=== PATIENT | female | born 1950 | race African-American/Black ===

== ENCOUNTER 2020-09-03 11:45 | Outpatient (CLI) | payer MEDICARE, SELFPAY ==
--- NOTE | ~2020-09-03 | XR_ITS ---
EXAMINATION: XR lumbar spine min 4V DATE: 09/03/2020 12:12 INDICATION: Low back pain TECHNIQUE: Anteroposterior, lateral, and bilateral oblique views of the lumbar spine, and cone-down l ateral view of the lumbosacral junction were obtained. COMPARISON: 05/03/2016 FINDINGS: There are 2 mm of chronic anterolisthesis of L3 on L4 and L4 on L5. The vertebral body heig hts are maintained. No fracture is identified. There is mild loss of intervertebral disc space height at L4-5 and L5-S1. Small degenerative osteophytes project from the anterior endplates of multiple ve rtebral bodies. Mild to moderate facet osteoarthritis is present in the lower lumbar spine. The bowel gas pattern is normal. IMPRESSION: 1. Mild lumbar spondylosis without acute findings or significant interval change. Reviewed, dictated and finalized at location A. IMPRESSION: 1. Mild lumbar spondylosis without acute findings or significant interval raffy petersen
== END 2020-09-03 11:46 | disposition home or self-care (01) ==
PROVIDERS: PCP Family Medicine; Visit Provider Family Medicine
DX: M54.5 Low back pain (principal); M47.816 Spondylosis without myelopathy or radiculopathy, lumbar region
CPT/HCPCS: 72110

== ENCOUNTER 2020-09-14 09:22 | Outpatient (CLI) | payer MEDICARE, SELFPAY ==
--- NOTE | ~2020-09-14 | MM_ITS ---
EXAMINATION: MM screening marko BI w charly HISTORY: Screening mammogram TECHNIQUE: Craniocaudal and mediolateral oblique 3-D tomosynthesis images were obtained and synthetic 2-D images were generated. CAD analysis was submitted and interpreted. COMPARISON: 09/12/2019, 09/09/2018, 09/07/2017 bilateral digital screening mammogram examinations BREAST PARENCHYMAL COMPOSITION: There are scattered areas of fibroglandular density. FINDINGS: Again noted is postoperative change from left partial mastectomy and radiation treatment fo r breast cancer. There is a biopsy marker on the right; history of prior benign right breast biopsy. Again noted are bilateral benign calcifications. There is no evidence of suspicious mass, calcificati on, or interval architectural distortion to suggest malignancy in either breast. There has been no koehler spicious interval change. IMPRESSION: 1. Status post left partial mastectomy for breast cancer. No mammographic evidence of malignancy. 2. Recommend routine screening mammography in one year. BI-RADS Category 2: Benign finding(s). Reviewed, dictated and finalized at location A. IMPRESSION: 1. Status post left partial mastectomy for breast cancer. No mammographic evide nce of malignancy. 2. Recommend routine screening mammography in one year. BI-RADS Category 2: Benign finding(s).
== END 2020-09-14 09:23 | disposition home or self-care (01) ==
PROVIDERS: PCP Family Medicine; Visit Provider Family Medicine
DX: Z12.31 Encounter for screening mammogram for malignant neoplasm of breast (principal)
CPT/HCPCS: 77063; 77067

== ENCOUNTER → 2021-08-30 13:16 | Outpatient (CLI) | payer MEDICARE, SELFPAY ==
--- NOTE | ~2021-08-30 | DEXA_ITS ---
Bone Density Report Name: Karey Díaz Age: 71 Sex: Female Ethnicity: White Date of : 1950 Indication: postmenopausal; screening for osteoporosis; height loss; hysterectomy; Referring Provider: SUKUMAR CISNEROS Study: Bone densitometry was performed. Exam Date: August 30, 2021 Accession number: [id number] Bone Density: Region BMD T-score Z-score Classification AP Spine (L1-L4) 0.962 -0.8 1.5 Normal Femoral Neck (Left) 1.063 1.9 3.9 Normal Total Hip (Left) 1.037 0.8 2.4 Normal Femoral Neck (Right) 0.961 1.0 2.9 Normal Total Hip (Right) 0.977 0.3 1.9 Normal Total Hip Mean 1.007 0.6 2.2 Normal World Health Organization criteria for BMD impression classify patients as: Normal (T-score at or above -1.0), Osteopenia (T-score between -1.0 and -2.5), or Osteoporosis (T-score at or below -2.5). 10-year Fracture Risk: FRAX not reported because: All T-scores for Spine Total, Hip Total, Femoral Neck at or above -1.0 Clinical Information Provided by Patient: Has used the following medications: Vitamin D Has the following medical conditions: Hysterectomy Patient maximum height was 66 Menopause Age: 46 No regular weight bearing exercise Does not regularly consume dairy products Onset of menses at age 12 Number of children 2 Impression: The patient has normal bone mass. Discussion: BONE DENSITY IS ABOVE THE MINIMUM DESIRABLE LEVEL AT ALL SKELETAL SITES TESTED. This patient?s bone mineral density is above the minimum desirable level (T-score -1.0 or better) at all sites measured. The patient should follow a healthful lifestyle (good nutrition with adequate calcium and vitamin D, and appropriate weight-bearing exercise). Follow-Up: Consider repeating this study in 5 years or sooner if there is some new clinical indication. Reported by: [facility] on 08/30/2021 1:40:00 PM. Reviewed, dictated and finalized at location AZeb RIZZO
== END ==
PROVIDERS: Visit Provider Obstetrics & Gynecology
DX: Z78.0 Asymptomatic menopausal state (principal)
CPT/HCPCS: 77080

== ENCOUNTER 2021-10-28 09:17 | Outpatient (CLI) | payer MEDICARE, SELFPAY ==
--- NOTE | ~2021-10-28 | MM_ITS ---
EXAMINATION: MM screening marko BI w charly HISTORY: Screening TECHNIQUE: Craniocaudal and mediolateral oblique 3-D tomosynthesis images were obtained and synthetic 2-D images were generated. CAD analysis was submitted and interpreted. COMPARISON: No prior mammogram is available for comparison at this institution. BREAST PARENCHYMAL COMPOSITION: There are scattered areas of fibroglandular density. FINDINGS: There are focal asymmetries in the upper outer quadrant of the right breast posteriorly. Th e left breast is stable with unchanged architectural distortion and postsurgical change. IMPRESSION: 1. Developing right breast asymmetry, upper outer quadrant. 2. Additional mammographic views and possible breast ultrasound are recommended. BI-RADS Category 0: Incomplete: Needs additional imaging evaluation. Reviewed, dictated and finalized at location A. CCO DIPPER IMPRESSION: 1. Developing right breast asymmetry, upper outer quadrant. 2. Additional mammographic views and possible breast ultrasound are recommended . BI-RADS Category 0: Incomplete: Needs additional imaging evaluation.
== END 2021-10-28 09:18 | disposition home or self-care (01) ==
LOC: ANHIMG 09:18
PROVIDERS: PCP Family Medicine; Visit Provider Family Medicine
DX: Z12.31 Encounter for screening mammogram for malignant neoplasm of breast (principal); R92.8 Other abnormal and inconclusive findings on diagnostic imaging of breast
CPT/HCPCS: 77063; 77067

== ENCOUNTER 2021-11-11 12:06 | Outpatient (CLI) | payer MEDICARE, SELFPAY ==
--- NOTE | ~2021-11-11 | MM_ITS ---
EXAMINATION: MM diagnostic marko RT w charly HISTORY: Focal asymmetry of the right breast on screening mammogram TECHNIQUE: Additional 3-D tomosynthesis images of the right breast were performed and synthetic 2-D i mages were generated. CAD analysis was submitted and interpreted. COMPARISON: 10/28/2021, 09/14/2020, 08/13/2019, 09/09/2018 FINDINGS: There is a return to baseline fibroglandular appearance with spot compression of the right breast in the area questioned on screening mammogram. IMPRESSION: 1. No mammographic evidence of malignancy. 2. Recommend routine screening mammography in one year. BI-RADS Category 1: Negative Reviewed, dictated and finalized at location A. GER COMMUNICATION
== END 2021-11-11 12:07 | disposition home or self-care (01) ==
LOC: ANHIMG 12:08
PROVIDERS: PCP Family Medicine; Visit Provider Family Medicine
DX: N64.89 Other specified disorders of breast (principal)
CPT/HCPCS: 77061; 77065; G0279

== ENCOUNTER 2022-09-01 07:49 | Outpatient (CLI) | payer MEDICARE, SELFPAY ==
--- NOTE | 2022-09-01 08:30 | ECG_ITS ---
Measurements Intervals [place] Rate: 65 P: 33 DC: 182 QRS: 42 QRSD: 87 T: 69 QT: 408 QTc: 426 Interpretive Statements SINUS RHYTHM NO PREVIOUS ECG AVAILABLE FOR COMPARISON Electronically Signed On 09-02-2022 13:02:18 CDT by Hillary Yo M.D.
== END 2022-09-01 07:50 | disposition home or self-care (01) ==
PROVIDERS: PCP Family Medicine; Visit Provider Podiatrist Foot & Ankle Surgery
DX: R03.0 Elevated blood-pressure reading, without diagnosis of hypertension (principal)
CPT/HCPCS: 93005

== ENCOUNTER 2023-01-07 12:50 | Outpatient (CLI) | payer MEDICARE, SELFPAY ==
--- NOTE | ~2023-01-07 | MM_ITS ---
EXAMINATION: MM screening marko BI w charly HISTORY: Screening mammogram; status post left partial mastectomy for breast cancer. Prior reportedly benign right breast biopsy. TECHNIQUE: Craniocaudal and mediolateral oblique 3-D tomosynthesis images were obtained and synthetic 2-D images were generated. CAD analysis was submitted and interpreted. COMPARISON: 11/11/2021 diagnostic right mammogram 10/28/2021, 09/14/2020 bilateral screening mammogram examinations BREAST PARENCHYMAL COMPOSITION: There are scattered areas of fibroglandular density. FINDINGS: Stable postsurgical changes from left mastectomy including diminished volume of the left br east, multiple surgical clips in the upper outer quadrant, asymmetric stable architectural distortion . Stable asymmetric opacity in the posterior mid upper right breast. There is no evidence of suspicio us mass, calcification, or architectural distortion to suggest malignancy in either breast. There has been no suspicious interval change. IMPRESSION: 1. No mammographic evidence of malignancy. 2. Recommend routine screening mammography in one year. BI-RADS Category 2: Benign finding(s). Reviewed, dictated and finalized at location A. PATIENT SERVICES
== END 2023-01-07 12:51 | disposition home or self-care (01) ==
PROVIDERS: PCP Family Medicine; Visit Provider Family Medicine
DX: Z12.31 Encounter for screening mammogram for malignant neoplasm of breast (principal)
CPT/HCPCS: 77063; 77067

== ENCOUNTER 2023-11-20 13:39 | Outpatient (CLI) | payer MEDICARE, SELFPAY ==
--- NOTE | ~2023-11-20 | XR_ITS ---
XR hip RT min 2V 11/20/2023 14:01 Indication: Right hip pain Procedure: 2 views right hip Comparison: No prior studies for comparison. Findings: There is moderate osteoarthritis of the right hip. No fracture or traumatic malalignment. N o significant soft tissue abnormality. Impression: 1: Moderate osteoarthritis of the right hip. Reviewed, dictated and finalized at location A. PRE COOLER Impression: 1: Moderate osteoarthritis of the right hip.
--- NOTE | ~2023-11-20 | XR_ITS ---
EXAMINATION: XR lumbar spine min 4V DATE: 11/20/2023 14:01 INDICATION: Low back pain TECHNIQUE: Anteroposterior, lateral, and bilateral oblique views of the lumbar spine, and cone-down l ateral view of the lumbosacral junction were obtained. COMPARISON: 09/03/2020 FINDINGS: There are 3 mm of anterolisthesis of L3 on L4 and L4 on L5. There is mild loss of intervert ebral disc space height at L4-5 and L5-S1. The vertebral body heights are maintained. There is no fra cture. There is moderate facet joint osteoarthritis at L4-5 and L5-S1 and mild facet joint osteoarthr itis throughout the remainder of the lumbar spine. There is moderate to severe osteoarthritis of the hips. Phleboliths are noted in the pelvis. IMPRESSION: 1. Mild to moderate lumbar spondylosis without acute findings. 2. Moderate to severe osteoarthritis of the hips. Reviewed, dictated and finalized at location B. AL TAXONOMIST
== END 2023-11-20 13:40 | disposition home or self-care (01) ==
PROVIDERS: PCP Family Medicine; Visit Provider Family Medicine
DX: G89.29 Other chronic pain (principal); M54.41 Lumbago with sciatica, right side; M25.551 Pain in right hip; M43.06 Spondylolysis, lumbar region; M16.0 Bilateral primary osteoarthritis of hip
CPT/HCPCS: 72110; 73502

== ENCOUNTER 2024-01-19 07:33 | Outpatient (CLI) | payer MEDICARE, SELFPAY ==
--- NOTE | ~2024-01-19 | MM_ITS ---
EXAMINATION: MM screening [facility] BI w charly HISTORY: Screening TECHNIQUE: Craniocaudal and mediolateral oblique 3-D tomosynthesis images were obtained and synthetic 2-D images were generated. CAD analysis was submitted and interpreted. COMPARISON: Comparison to multiple prior studies sequentially, with oldest reviewed study dated 08/23. BREAST PARENCHYMAL COMPOSITION: Not dense: There are scattered areas of fibroglandular density. FINDINGS: Bilateral lateral breast asymmetries are stable allowing for differences of technique. Stab le architectural distortion in the upper aspect of the left breast consistent with previous lumpectom y. There is no evidence of suspicious mass, calcification, or architectural distortion to suggest mal ignancy in either breast. There has been no suspicious interval change. IMPRESSION: 1. No mammographic evidence of malignancy. 2. Recommend routine screening mammography in one year. BI-RADS Category 2: Benign finding(s). Reviewed, dictated and finalized at location A. ENGINEER
== END 2024-01-19 07:34 | disposition home or self-care (01) ==
PROVIDERS: PCP Family Medicine; Visit Provider Family Medicine
DX: Z12.31 Encounter for screening mammogram for malignant neoplasm of breast (principal)
CPT/HCPCS: 77063; 77067

== ENCOUNTER 2024-01-26 11:00 | Outpatient (RCR) | payer MEDICARE, SELFPAY ==
--- NOTE | 2023-11-30 10:39 | PCPTNOTE ---
Patient called & cancelled scheduled initial evaluation this date. She did not reschedule.
--- NOTE | 2023-12-15 07:58 | PCPTNOTE ---
Patient called & cancelled scheduled appointment this date due to inclement weather. She has been rescheduled.
--- NOTE | 2023-12-18 11:16 | PTOPEVAL1 ---
Assessment and note entered by Fermín Paz, PT Evaluation Information Assessment Status Evaluation Diagnosis Pain in R hip, Lumbago with bilateral sciatica Onset November 2021 Subjective Information Reports that she has good days and bad days. Pain is worse on her R side than L side. She is not currently doing any intense physical activity causing her pain. Pain is worse in the AM. Not taking pain medication or anti-inflammatories at this time. Uses over the counter NSAIDs. Pain is all with locomotion or twisting of spine. Pain will occasionally radiate to the knee. Pain is more so on lateral hips than in spine at this time . Denies falls at this time. She has to navigate the stars in her house backwards. Reported Pain Level Pain Score 0: Self Report Assessment PT Clinical Summary Patient presents with severe restriction in luan hip mobility in multi directions. Disc degeneration present in radiographs indicating potential stenotic like symptoms and movement patterns. Patient will benefit from skilled therapy to address hip mobility, strength, and gross core control to stabilize lumbar spine. Plan of Care Interventions Electrical Stimulation,Hot Pack/Cold Pack,Manual Therapy,Neuro Re-education,Patient/Caregiver Educati,Therapeutic Activities,Therapeutic Exercise PT Services Indicated Yes Treatment Frequency and 2x/week for 8 weeks Duration These treatments will address the objective and functional deficits as defined above. The patient will be advanced safely and appropriately in order for the patient to progress towards his/her prior level of function. Additional exercises will be introduced and as well as a comprehensive home exercise program upon discharge, if needed, ?to ensure carryover of functional gains achieved in the clinic. This treatment plan has been reviewed and agreement upon by the patient.
--- NOTE | 2023-12-18 11:16 | OPREHPOC ---
Outpatient Therapy Plan of Care This is a Multidisciplinary Plan of Care that may contain components documented by all disciplines (PT, OT, and ST.) PT Problem 1 PT Problem #1 Knowledge Deficit PT Goal 1 Goal Independent with HEP for hip mobilization Target Visit 4 PT Problem 2 PT Problem #2 Pain PT Goal 1 Goal Report no pain greater than 2/10 with morning transfers and ambulation Target Visit 8 PT Problem 3 PT Problem #3 Impaired Range of Motion PT Goal 1 Goal Demonstrate 40 degrees of luan hip abduction to improve capsular mobility with gait and ADLs Target Visit 8 PT Goal 2 Goal Improve luan hip ER to 45 degrees to improve capsular mobility and LE dressing ability Target Visit 8 PT Problem 4 PT Problem #4 Impaired Gait PT Goal 1 Goal Demonstrate improve terminal stance bilaterally with improved hip extension Target Visit 8
--- NOTE | 2024-01-26 12:12 | PTOPDC ---
Assessment and note entered by Fermín Paz, PT Evaluation Information Assessment Status Discharge Diagnosis Pain in R hip, Lumbago with bilateral sciatica Onset November 2021 Subjective Information Reports that overall she is doing some better. Pain is improved but she still has bad days. Feels comfortable with her current HEP and plans to continue it. Requests discharge at this time as she is leaving for vacation next week. Reported Pain Level Pain Score 1: Self Report Assessment PT Clinical Summary Patient presents with severe restriction in luan hip mobility in multi directions. Disc degeneration present in radiographs indicating potential stenotic like symptoms and movement patterns. Patient will benefit from skilled therapy to address hip mobility, strength, and gross core control to stabilize lumbar spine. Plan of Care PT Services Indicated D/C to HEP
--- NOTE | 2024-01-26 12:13 | OPREHPOC ---
Outpatient Therapy Plan of Care This is a Multidisciplinary Plan of Care that may contain components documented by all disciplines (PT, OT, and ST.) PT Problem 1 PT Problem #1 Knowledge Deficit PT Goal 1 Goal Independent with HEP for hip mobilization Target Visit 4 Progress Met PT Problem 2 PT Problem #2 Pain PT Goal 1 Goal Report no pain greater than 2/10 with morning transfers and ambulation Target Visit 8 Progress Met PT Problem 3 PT Problem #3 Impaired Range of Motion PT Goal 1 Goal Demonstrate 40 degrees of luan hip abduction to improve capsular mobility with gait and ADLs Target Visit 8 Progress Partially Met Comment Improved PT Goal 2 Goal Improve luan hip ER to 45 degrees to improve capsular mobility and LE dressing ability Target Visit 8 Progress Partially Met Comment Improved PT Problem 4 PT Problem #4 Impaired Gait PT Goal 1 Goal Demonstrate improve terminal stance bilaterally with improved hip extension Target Visit 8 Progress Met
== END 2024-01-26 12:52 | disposition home or self-care (01) ==
LOC: ANHGOSHPT 11:00
PROVIDERS: PCP Family Medicine; Visit Provider Family Medicine
DX: M25.551 Pain in right hip (principal); M54.41 Lumbago with sciatica, right side; M54.42 Lumbago with sciatica, left side; G89.29 Other chronic pain
CPT/HCPCS: 97110; 97112; 97140; 97161; 97530

== ENCOUNTER 2025-03-16 08:36 | Outpatient (CLI) | payer MEDICARE, SELFPAY ==
--- NOTE | ~2025-03-16 | MM_ITS ---
EXAMINATION: MM screening marko BI w charly HISTORY: Screening TECHNIQUE: Craniocaudal and mediolateral oblique 3-D tomosynthesis images were obtained and synthetic 2-D images were generated. CAD analysis was submitted and interpreted. COMPARISON: Comparison to multiple prior studies sequentially, with oldest reviewed study dated 08/24. BREAST PARENCHYMAL COMPOSITION: Not dense: There are scattered areas of fibroglandular density. FINDINGS: There is no evidence of suspicious mass, calcification, or architectural distortion to sugg est malignancy in either breast. There has been no suspicious interval change. IMPRESSION: 1. No mammographic evidence of malignancy. 2. Recommend routine screening mammography in one year. BI-RADS Category 1: Negative Reviewed, dictated and finalized at location A.
--- OUTSIDE RECORDS SUMMARY | 2025-03-16 08:57 | XMS_ITS | Clinical Summary ---
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 Gender Identity Not on file Sexual Orientation Not on file Plan of Treatment Health Maintenance Due Date Last Done Comments DEXA Bone Density 1950 Hepatitis C Virus (HCV) Screening 1950 TdaP Immunization 1950 Colonoscopy 1994 Colorectal Cancer Screening 1994 Cologuard 1999 Immunochemical Fecal Occult Blood 1999 Pneumococcal Immunization (50+ years) (1 of 1 - PCV) 1999 Zoster Immunization (2 of 2) 12/26/2020 10/31/2020 Respiratory Syncytial Virus (RSV) Immunization (Adult) (1 - 1-dose 75+ series) 2024 Influenza Immunization (#1) 07/24/202407/24, 08/04/2019, 07/23/2018, Additional history exists SARS-COV-2 Immunization ( season) 2024 Hepatitis B Immunization Aged Out No longer eligible based on patient's age to complete this topic Meningococcal Immunization (ACWY) Aged Out No longer eligible based on patient's age to complete this topic Rotavirus Immunization Aged Out No lo nger eligible based on patient's age to complete this topic
--- OUTSIDE RECORDS SUMMARY | 2025-03-16 08:57 | XMS_ITS | Clinical Summary ---
Author Organization [facility] Address [address] [place] [address] Phone Care Team Providers Care Strategies Analyst Name Role Phone Levon Rae MD Primary Care Provider [phone] Allergies Active Allergy Reactions Criticality Noted Date Comments Mold Fatigue Low 07/11/2013 Medications JANUVIA 100 mg tabletIndicatio ns:type 2 diabetes mellitus 8 Active pravastatin (PRAVACHOL) 80 mg tablet [address] (PROTONIX) 40 mg EC tablet 8 Active nateglinide (STARLIX) 120 mg tabletIndicatio ns:type 2 diabetes mellitus 8 Active lisinopril (PRINIVIL,ZESTR IL) 40 mg tablet 8 Active irbesartan (AVAPRO) 300 mg tablet 8 Active metFORMIN XR (GLUCOPHAGE XR) 500 mg 24 hr tablet Take 1 tablet (500 mg total) by mouth 2 (two) times a day 3 9 Active ACCU-CHEK FASTCLIX LANCET DRUM misc USE TO TEST BLOOD SUGAR ONCE DAILY 3 9 Active hydroCHLOROthia zide (MICROZIDE) 12.5 mg capsule Take 12.5 mg by mouth every morning. 3 8 Active ACCU-CHEK GUIDE GLUCOSE METER misc USE GLUCOMETER TO TEST BLOOD SUGAR ONCE DAILY 0 9 Active blood glucose diagnostic strip USE TO TEST BLOOD SUGAR DAILY 3 9 Active hydroCHLOROthia zide (HYDRODIURIL) 12.5 mg tablet Take 1 tablet (12.5 mg total) by mouth daily 0 Active OneTouch Delica Plus Lancet 33 gauge misc daily 0 Active Farxiga 10 mg tablet Take 1 tablet (10 mg total) by mouth every morning 3 Active Active Problems Problem Noted Date Diagnosed Date Malignant neoplasm of upper- outer quadrant of left breast in female, estrogen receptor positive 07/13/2018 Breast cancer, female 11/19/2012 Immunizations Immunization Administration Dates Next Due Influenza, Quad, Adjuvantate d, Intramuscular 08/06/2020 Influenza, Trivalent, High D ose, Split, Preservative Free, Intramuscular 08/04/2019,07/23/2018,09/14/2017,12/16 Influenza, Unspecified 07/24/2018 Pneumococcal Polysaccharide PPV23 11/23/2017 ZOSTER Recombinant 04/11/2021,10/31/2020 Surgical History Surgery Date Site/Laterality Comments BREAST BIOPSY BREAST LUMPECTOMY COLONOSCOPY HYSTERECTOMY Medical History Medical History Date Comments Diabetes mellitus (HCC) Breast cancer (HCC) Hypercholesteremia Hypertension Family History Medical History Relation Name Comments Breast cancer Mother Relation Name Status Comments Mother Social History Tobacco Use Types Packs/Day Years Used Date Smoking Tobacco: Never Smokeless Tobacco: Never Alcohol Use Standard Drinks/Week Comments Not Currently 0 (1 standard drink = 0.6 oz pur e alcohol) Personal Safety Answer Date Recorded Getting School Help Needed Not on file 11/27 Comments Unknown Sex and Gender Information Value Date Recorded Sex Assigned at Not on file Legal Sex Female 3:34 PM CDT Gender Identity Female 01/22/2021 9: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 CENTER TRAINER Sexual Orientation Not on file Obstetrics History Last Filed Vital Signs Vital Sign Reading Time Taken Comments Blood Pressure 120/80 11/27/2023 4:54 PM CALL CENTER TRAINER Pulse 124 11/27/2023 4:54 PM CALL CENTER TRAINER Temperature 39.2 C (102.5 F) 11/27/2023 4:54 PM CALL CENTER TRAINER Respiratory Rate 18 11/27/2023 4:54 PM CALL CENTER TRAINER Oxygen Saturation 97% 11/27/2023 4:54 PM CALL CENTER TRAINER Inhaled Oxygen Concentration - - Weight 68.9 kg (152 lb) 11/27/2023 4:54 PM CALL CENTER TRAINER Height 167.6 cm (5' 6 ) 11/27/2023 4:54 PM CALL CENTER TRAINER Body Mass Index 24.53 11/27/2023 4:54 PM CALL CENTER TRAINER Plan of Treatment Health Maintenance Due Date Last Done Comments Depression Screening 1950 Fall Risk Assessment 1950 Hepatitis C Screening 1950 Osteoporosis Screening-Bone Density Scan 1950 DTaP/Tdap/Td Vaccine (1 - Tdap) 1960 Hepatitis B Screening 1967 Well Visit 65+ 2014 Pneumococcal vaccine 65+ (2 of 2 - PCV) 11/23/2018 11/23/2017 Covid-19 Vaccine (2023-2 5 season) 2024 09/17/2021, 02/05/2021, 01/15/2021 Influenza Vaccine (Season Ended) 2025 08/06/2020, 08/04/2019, 07/24/2018, Additional history exists Zoster Vaccine Completed 04/11/2021, 10/31/2020 Insurance [facility] MEDICARE UHC MEDICARE [facility] Address: [address] [address] [place] [address] Care Teams Strategies Analyst Relationship Specialty Start Date End Date Levon Rae MD [address] [address] PCP - General Family Medicine 07/13/18
--- OUTSIDE RECORDS SUMMARY | 2025-03-16 08:57 | XMS_ITS | Referral Summary ---
Author Organization [facility] Address [address] [place] [address] Phone Care Team Providers Care Clinical Services Consultant Name Role Phone Levon Rae MD Primary Care Provider [phone] [phone] Allergies Active Allergy Reactions Criticality Noted Date [...] Pneumococcal Polysaccharide PPV23 11/23/2017 ZOSTER Recombinant 04/11/2021,10/31/2020 Social History Tobacco Use Types Packs/Day Years [...] CDT Gender Identity Female 01/22/2021 9:46 AM BREAD PANNER Sexual Orientation Not on file Last Filed Vital Signs Vital Sign Reading Time Taken Comments Blood Pressure 120/80 11/27/2023 4:54 PM BREAD PANNER Pulse 124 11/27/2023 4:54 PM BREAD PANNER Temperature 39.2 C (102.5 F) 11/27/2023 4:54 PM BREAD PANNER Respiratory Rate 18 11/27/2023 4:54 PM BREAD PANNER Oxygen Saturation 97% 11/27/2023 4:54 PM BREAD PANNER Inhaled Oxygen Concentration - - Weight 68.9 kg (152 lb) 11/27/2023 4:54 PM BREAD PANNER Height 167.6 cm (5' 6 ) 11/27/2023 4:54 PM BREAD PANNER Body Mass Index 24.53 11/27/2023 4:54 PM BREAD PANNER Plan of Treatment Not on file Insurance [facility] Member Subscriber Plan / Payer (Ef fective 2017-Present) Name:Karey Díaz Relation to Subscriber:Self Name:Karey Díaz Payer ID:[id number] Group ID:Not on file Type:P21 Address: [facility] [id number] [place] [address] MEDICARE UHC MEDICARE ADVANTAGE Care Teams Clinical Services Consultant Relationship Specialty Start Date End Date Levon Rae MD [address] [place] [address] PCP - General Family Medicine 07/13/18
== END 2025-03-16 08:37 | disposition home or self-care (01) ==
PROVIDERS: PCP Family Medicine; Visit Provider Family Medicine
DX: Z12.31 Encounter for screening mammogram for malignant neoplasm of breast (principal)
CPT/HCPCS: 77063; 77067